=== PATIENT | male | born 1960 | race Caucasian/White ===

== ENCOUNTER 2019-09-03 17:57 | Inpatient (IN) | payer BC, MEDICAID ==
[~2019-09-03] VITALS: Ht 175.3 cm; Wt 90.0 kg
[~2019-09-03 17:57] MED LIST: BUPROPION HCL150 M1 PO; EFFEXOR XR75 MG; HYDROCODONE-APA1 TAB PO; LISINOPRIL10 MG PO; MOBIC7.5 MG PO; OMEPRAZOLE40 MG PO; SINEQUAN25 MG PO; TOPROL XL50 MG PO; WELLBUTRIN SR150 MG; XANAX2 MG PO; ZYPREXA20 MG; ZYPREXA20 MG PO
[2019-09-03 20:00] VITALS: BP 148/84
[2019-09-03 21:22] LABS: HEMATOCRIT 36.9 % (42.0-54.0); HEMOGLOBIN 13.2 g/dL (13.5-17.5); LYMPHOCYTES 23.1 % (15-50); MCH 35.2 pg (26.0-34.0); MCHC 35.8 g/dL (31.0-37.0); MCV 98.4 fL (80.0-100.0); MEAN PLATELET VOLUME 9.5 fL (7.4-10.4); NEUTROPHILS 69.3 % (40-80); RBC 3.75 10x6/uL (4.20-6.10); RDW 15.7 % (11.5-14.5); WBC 5.8 10x3/uL (4.8-10.8)
[2019-09-03 21:23] LABS: PLATELET COUNT 137 10x3/uL (130-400)
[2019-09-03 21:27] LABS: APTT 30.7 SECONDS (22.8-39.4); INR 1.07 (0.85-1.17); PROTIME 13.8 SECONDS (11.6-15.0)
[2019-09-03 21:31] LABS: ALBUMIN 3.9 g/dL (3.4-5.0); ANION GAP 6.5 mmol/L (8-16); BILIRUBIN - TOTAL 0.79 mg/dL (0.2-1.3); CALCIUM 8.3 mg/dL (8.5-10.1); CARBON DIOXIDE 31.5 mmol/L (21.0-32.0); CREATININE - SERUM 1.1 mg/dL (0.6-1.3); PROTEIN - SERUM 6.9 g/dL (6.4-8.2)
[2019-09-03 23:25] VITALS: BP 148/84; BMI 29.3
[2019-09-04 04:00] VITALS: BP 134/79
--- NOTE | 2019-09-04 06:00 | NUR ---
I have reviewed this patient and I concur with the Shift Assessment completed by the Licensed Practical Nurse today this shift.
--- NOTE | 2019-09-04 08:45 | NUR ---
HE IS ALERT, TALKING ABOUT HIS PAIN MEDICATIONS, HE C/O A HEADACHE. HE CAN MOVE HIS LEFT FINGERS, THEY ARE SWOLLEN 2+, PALE, COOL TO THE TOUCH. THE CALL LIGHT IS WITHIN REACH.
[2019-09-04 09:07] VITALS: BP 147/89
[2019-09-04] MEDS ORDERED: LEVOTHYROXINE137 MCG PO (10:23)
[2019-09-04] MEDS ORDERED: HYDROCHLOROTHIA25 MG (10:25)
[2019-09-04] MEDS ORDERED: CYCLOBENZAPRINE10 MG PO (10:25)
[2019-09-04] MEDS ORDERED: DEXTROAMPHETAMI10 M1 PO (10:26)
[2019-09-04] MEDS ORDERED: VOLTAREN75 MG PO (10:27)
[2019-09-04] MEDS ORDERED: SINEQUAN50 MG PO (10:28)
[2019-09-04] MEDS ORDERED: BUTALB-APAP-CA1 EACH PO (10:30)
[2019-09-04] MEDS ORDERED: ANDROGEL5 GM (10:32)
[2019-09-04] MEDS ORDERED: TRINTELLIX5 MG PO (10:36)
[2019-09-04] MEDS ORDERED: TESTOSTERONE INJ (10:36)
[2019-09-04] MEDS ORDERED: MELATONIN10 M1 PO (10:37)
[2019-09-04] MEDS ORDERED: L-METHYLFOLATE7.5 MG PO (10:37)
[2019-09-04 12:06] LABS: INR 1.01 (0.85-1.17); PROTIME 13.3 SECONDS (11.6-15.0)
[2019-09-04 12:07] LABS: APTT 35.3 SECONDS (22.8-39.4)
[2019-09-04 12:50] VITALS: BP 143/88
[2019-09-04 13:19] VITALS: Ht 175.3 cm; Wt 90.0 kg
[2019-09-04 16:45] VITALS: BP 129/78
[2019-09-04 19:37] LABS: APTT 37.5 SECONDS (22.8-39.4); INR 1.02 (0.85-1.17); PROTIME 13.3 SECONDS (11.6-15.0)
[2019-09-04 20:00] VITALS: BP 129/79
--- NOTE | 2019-09-05 02:18 | NUR ---
PT RESTING IN BED. EYES CLOSED. NO SIGNS OF DISTRESS. BREATHING EVEN AND UNLABORED. IV SITE LT FA DRESSING CLEAN DRY AND INTACT. NO SIGNS OF INFECTION OR INFULTRATION. SKIN CLEAN DRY AND INTACT. LT HAND SWELLING PRESENT. LUNG SOUNDS CLEAR. BOWEL SOUNDS ACTIVE. WILL CONTINUE PLAN OF CARE. ALL LIGHT IN REACH. BED LOWERED AND LOCKED. BED RAILS UPX2.
[2019-09-05 04:00] VITALS: BP 104/52
--- NOTE | 2019-09-05 04:57 | NUR ---
I have reviewed this patient and I concur with the Shift Assessment completed by the Licensed Practical Nurse today this shift.
[2019-09-05 06:16] LABS: CALC OSMOLALITY 274 mosm/kg (275-300); CALCIUM 7.5 mg/dL (8.5-10.1); CARBON DIOXIDE 30.2 mmol/L (21.0-32.0); CHLORIDE - SERUM 104 mmol/L (98-107); GLUCOSE 110 mg/dL (74-106); MAGNESIUM - SERUM 2.1 mg/dL (1.8-2.4); PHOSPHOROUS 2.8 mg/dL (2.5-4.9); POTASSIUM - SERUM 3.2 mmol/L (3.5-5.1); SODIUM 138 mmol/L (136-145); URIC ACID 3.4 mg/dL (2.6-7.2); eGFR NON AFRICAN AMERICAN 82 mL/min (90-120)
[2019-09-05 06:18] LABS: UREA NITROGEN 7 mg/dL (7-18)
[2019-09-05 07:02] LABS: HEMATOCRIT 35.1 % (42.0-54.0); HEMOGLOBIN 12.4 g/dL (13.5-17.5); LYMPHOCYTES 23.2 % (15-50); MCH 35.5 pg (26.0-34.0); MCHC 35.3 g/dL (31.0-37.0); MEAN PLATELET VOLUME 10.1 fL (7.4-10.4); NEUTROPHILS 69.2 % (40-80); PLATELET COUNT 129 10x3/uL (130-400); RBC 3.49 10x6/uL (4.20-6.10); RDW 15.6 % (11.5-14.5)
[2019-09-05 07:04] LABS: MCV 100.6 fL (80.0-100.0)
[2019-09-05 09:05] LABS: ERYTHROCYTE SEDIMENTATION RATE 5 mm/hr (0-20)
[2019-09-05 10:31] VITALS: BP 118/57; BP 128/62
[2019-09-05 13:20] VITALS: BP 134/78
[2019-09-05 17:38] VITALS: BP 151/73
--- NOTE | 2019-09-05 19:00 | NUR ---
REPORT GIVEN BY SHARON ARIAS.
--- NOTE | 2019-09-05 19:30 | NUR ---
INTRODUCED MYSELF TO PT. EXPLAINED THAT I WOULD BE BACK IN A FEW MINUTES TO DO AN ASSESSMENT. HE VERBALIZED UNDERSTANDING.
[2019-09-05 20:00] VITALS: BP 136/84
--- NOTE | 2019-09-05 20:20 | NUR ---
PT HAD C/O EARLIER OF PAIN IN HIS BACK AND NECK. HE WAS GIVEN 1 MG OF DILALUDID IV PER DR. PARRA.
--- NOTE | 2019-09-05 20:20 | NUR ---
PT ASSESSMENT COMPLETED. HEART SOUNDS WNL, LUNG SOUNDS CLEAR, BOWEL SOUNDS HEARD IN ALL QUADRANTS. SKIN IS WARM AND DRY. NO BREAKDOWN NOTED. PT IS UP AND ABOUT IN HIS ROOM AD SALLY. HE HAS A LEFT AC IV WITH NORMAL SALINE RUNNING AT 50 ML/HR. HE ALSO HAS IV ANTIBIOTICS. PT RIGHT LITTLE FINGER POSSIBLE DVT. IT IS REDDENED AND PAINFUL TO PT. HE STATES HE HAS A LITTLE FEELING COMING BACK. HE STATES HE HAD A MRI TODAY OF HIS BACK AND NECK. PT HAS A SALINE LOCK IN THE RIGHT FOREARM THAT IS NOT USED. IT IS RED AND PAINFUL AT THE SITE. THIS IV WAS REMOVED. PT HAS NO C/O OR NEEDS AT THIS TIME
--- NOTE | 2019-09-05 21:00 | NUR ---
PT STATES HIS PAIN IS A LITTLE BETTER. NO C/O OR NEEDS.
--- NOTE | 2019-09-05 22:00 | NUR ---
PT IS RESTING QUIETLY IN HIS ROOM. NO C/O OR NEEDS.
--- NOTE | 2019-09-05 22:52 | NUR ---
PT OUT IN HALLWAY REQUESTING [employer]UICE. THIS WAS DELIVERED TO HIM. HE HAS NO C/O AT THIS TIME.
--- NOTE | 2019-09-06 00:05 | NUR ---
PT IS LAYING ON HIS RIGHT SIDE SNORING. HE HAS HIS SCD'S ON. NO C/O AT THIS TIME
--- NOTE | 2019-09-06 02:00 | NUR ---
RESTING QUIETLY. RESPIRATIONS EVEN AND UNLABORED. CALL LIGHT IN REACH
--- NOTE | 2019-09-06 03:41 | NUR ---
I have reviewed this patient and I concur with the Shift Assessment completed by the Licensed Practical Nurse today this shift.
[2019-09-06 04:00] VITALS: BP 134/79
--- NOTE | 2019-09-06 04:06 | NUR ---
PT IS RESTING QUIETLY NOW. NO C/O OR NEEDS
[2019-09-06 05:24] LABS: HEMATOCRIT 34.4 % (42.0-54.0); HEMOGLOBIN 12.4 g/dL (13.5-17.5); LYMPHOCYTES 23.7 % (15-50); MCH 35.9 pg (26.0-34.0); MCV 99.7 fL (80.0-100.0); MEAN PLATELET VOLUME 9.4 fL (7.4-10.4); NEUTROPHILS 68.6 % (40-80); PLATELET COUNT 119 10x3/uL (130-400); RBC 3.45 10x6/uL (4.20-6.10); RDW 15.9 % (11.5-14.5)
[2019-09-06 05:26] LABS: WBC 6.3 10x3/uL (4.8-10.8)
[2019-09-06 05:34] LABS: ANION GAP 7.7 mmol/L (8-16); CARBON DIOXIDE 29.9 mmol/L (21.0-32.0); CREATININE - SERUM 1.1 mg/dL (0.6-1.3); MAGNESIUM - SERUM 1.9 mg/dL (1.8-2.4); POTASSIUM - SERUM 3.6 mmol/L (3.5-5.1)
--- NOTE | 2019-09-06 06:36 | NUR ---
PT IS RESTING QUIETLY IN BED. NO C/O OR NEEDS
[2019-09-06 09:47] VITALS: BP 129/28
[2019-09-06 13:13] VITALS: BP 137/99
[2019-09-06] MEDS ORDERED: NITROGLYCERIN2.5 MG PO (13:59)
[2019-09-06] MEDS ORDERED: NORVASC5 MG PO (13:59)
[2019-09-06] MEDS ORDERED: GABAPENTIN100 MG PO (14:00)
[2019-09-06] MEDS ORDERED: NITRO-BID OINT30 G1 TOPICAL (14:03)
[2019-09-06] MEDS ORDERED: BACTRIM DS TAB1 EAC1 PO (14:04)
[2019-09-06] MEDS ORDERED: MEDROL DOSE PACK4 MG PO (14:14)
== END 2019-09-06 18:21 | disposition home or self-care (01) | DRG 547 ==
LOC: D.MS 17:57
PROVIDERS: Family Medicine; ADMIT Family Medicine; ATTEND Family Medicine
DX: I73.00 Raynaud's syndrome without gangrene (principal); D64.9 Anemia, unspecified; E87.6 Hypokalemia; I10 Essential (primary) hypertension; K21.9 Gastro-esophageal reflux disease without esophagitis; G89.29 Other chronic pain; E03.9 Hypothyroidism, unspecified